=== PATIENT | female | born 1960 | race Caucasian/White ===

== ENCOUNTER 2023-04-17 16:39 | Inpatient (IN) ==
[2023-04-17] MEDS ORDERED: morphine 4 MG/ML VIAL IV ONE (17:00)
[2023-04-17] MEDS ORDERED: 0.9 % SODIUM CHLORIDE 1,000 ML IV ONE (17:01)
[2023-04-17] MEDS ORDERED: HYDROmorphone 1 MG/ML SYRINGE IV ONE ×2 (18:17→19:36)
[2023-04-17] MEDS ORDERED: PIPERACILLIN SODIUM/TAZOBACTAM 3.375 GM in DEXTROSE 5% IN WATER 50 ML IV ONE (19:02)
[2023-04-17] MEDS ORDERED: PANTOPRAZOLE 40 MG VIAL IV ONE (20:06)
[2023-04-17] MEDS: PIPERACILLIN SODIUM/TAZOBACTAM 3.375 GM in DEXTROSE 5% IN WATER 50 ML IV SCH (20:19)
[2023-04-17] MEDS: DEXTROSE 5%-LR 1,000 ML IV SCH ×2 (20:31→21:52)
[2023-04-17] MEDS: HYDROmorphone 0.5 MG/0.5 ML SYRINGE IV PRN (21:15)
[2023-04-17] MEDS: ACETAMINOPHEN 1,000 MG/100 ML BAG IV SCH (21:52)
[2023-04-18] MEDS: HYDROmorphone 0.5 MG/0.5 ML SYRINGE IV PRN ×11 (00:42→23:07)
[2023-04-18] MEDS: PIPERACILLIN SODIUM/TAZOBACTAM 3.375 GM in DEXTROSE 5% IN WATER 50 ML IV SCH ×2 (03:07→10:27)
[2023-04-18] MEDS: ACETAMINOPHEN 1,000 MG/100 ML BAG IV SCH (05:01)
[2023-04-18 06:58] LABS: Hematocrit 35.2 % (34.1-44.9); Hemoglobin 11.1 g/dL (11.2-15.7); Mean Cell Volume 95.7 fL (80.0-100.0); Mean Corpuscular HGB Conc 31.5 g/dL (31.0-36.0); Platelet Count 419 K/mcL (140-440); RBC 3.68 M/mcL (3.59-5.38); Red Cell Distribution Width 12.7 % (11.5-14.5); WBC 9.8 K/mcL (4.5-11.0)
[2023-04-18] MEDS: DEXTROSE 5%-LR 1,000 ML IV SCH ×4 (07:07→20:16)
[2023-04-18 07:51] LABS: ALT/SGPT < 5 U/L (<40); AST/SGOT 12 U/L (<32); Albumin 3.2 gm/dL (3.2-5.2); Alkaline Phosphatase 89 U/L (39-117); Bilirubin,Total 0.2 mg/dL (0.1-1.0); Blood Urea Nitrogen 6 mg/dL (6-20); Calcium 8.6 mg/dL (8.6-10.4); Carbon Dioxide 25 mmol/L (22-30); Chloride 100 mmol/L (96-108); Globulin 3.2 gm/dL (2.2-3.7); Glomerular Filtration Rate 99; Glucose 85 mg/dL (70-105)
[2023-04-18] MEDS ORDERED: PIPERACILLIN SODIUM/TAZOBACTAM 3.375 GM in DEXTROSE 5% IN WATER 50 ML IV ONE (10:30)
[2023-04-18] MEDS ORDERED: ACETAMINOPHEN 1,000 MG/100 ML BAG IV PRN (10:47)
[2023-04-18] MEDS: oxyCODONE IR 5 MG TABLET PO PRN ×4 (11:02→23:56)
[2023-04-18] MEDS: PIPERACILLIN SODIUM/TAZOBACTAM 3.375 GM in DEXTROSE 5% IN WATER 100 ML IV SCH (18:01)
[2023-04-19] MEDS: HYDROmorphone 0.5 MG/0.5 ML SYRINGE IV PRN ×11 (02:01→20:41)
[2023-04-19] MEDS: PIPERACILLIN SODIUM/TAZOBACTAM 3.375 GM in DEXTROSE 5% IN WATER 100 ML IV SCH ×4 (02:09→22:54)
[2023-04-19 03:58] LABS: Appearance,Urine CLEAR (Clear); Bilirubin,Urine Negative (Negative); Color,Urine YELLOW; Culture Indicated,Urine No; Glucose,Urine (UA) Negative (Negative); Ketones,Urine Negative (Negative); Leukocyte Esterase,Urine Negative /uL (Negative); Mucus,Urine FEW /hpf; Nitrate,Urine Negative (Negative); Protein,Urine Negative (Negative); Specific Gravity,Urine 1.008 (1.000-1.035); Urine RBC 2 /hpf (0-3); Urine Squamous Epithelial Cell 3 /hpf (0-4); Urine WBC < 1 /hpf (0-4)
[2023-04-19] MEDS ORDERED: INDOCYANINE GREEN 25 MG VIAL IV ONE (05:00)
[2023-04-19] MEDS ORDERED: KETAMINE 50 MG/ML Syringe IV ONE (07:02)
[2023-04-19] MEDS ORDERED: fentaNYL 100 MCG/2 ML VIAL IV ONE ×3 (07:03→10:38)
[2023-04-19] MEDS ORDERED: ROCURONIUM 10 MG/ML ML IV ONE ×2 (07:04→09:03)
[2023-04-19] MEDS ORDERED: LIDOCAINE 2% PF 5 ML VIAL ONE (07:04)
[2023-04-19] MEDS ORDERED: DEXAMETHASONE 10 MG/ML VIAL ONE (07:04)
[2023-04-19] MEDS ORDERED: SUGAMMADEX SODIUM 200 MG/2 ML VIAL IV ONE (07:04)
[2023-04-19] MEDS ORDERED: ONDANSETRON 4 MG/2 ML VIAL ONE (07:04)
[2023-04-19] MEDS ORDERED: PROPOFOL 200 MG/20 ML VIAL IV ONE (07:05)
[2023-04-19] MEDS ORDERED: MAGNESIUM SULFATE 2 GM/50 ML BAG IV ONE (07:06)
[2023-04-19] MEDS ORDERED: IPRATROPIUM/ALBUTEROL 3 ML AMPUL.NEB NEB PRN ×2 (07:30→10:21)
[2023-04-19] MEDS ORDERED: SCOPOLAMINE 1 PATCH PATCH TOPICAL PRN (07:30)
[2023-04-19 07:34] LABS: ALT/SGPT 5 U/L (<40); AST/SGOT 9 U/L (<32); Albumin 3.4 gm/dL (3.2-5.2); Alkaline Phosphatase 96 U/L (39-117); Bilirubin,Total 0.3 mg/dL (0.1-1.0); Blood Urea Nitrogen 3 mg/dL (6-20); Calcium 9.3 mg/dL (8.6-10.4); Carbon Dioxide 24 mmol/L (22-30); Chloride 101 mmol/L (96-108); Globulin 3.4 gm/dL (2.2-3.7); Glomerular Filtration Rate 99; Glucose 99 mg/dL (70-105)
[2023-04-19 07:54] LABS: Hematocrit 35.8 % (34.1-44.9); Hemoglobin 11.4 g/dL (11.2-15.7); Mean Cell Volume 95.7 fL (80.0-100.0); Mean Corpuscular HGB Conc 31.8 g/dL (31.0-36.0); Mean Platelet Volume 9.6 fL (8.8-12.5); Platelet Count 408 K/mcL (140-440); RBC 3.74 M/mcL (3.59-5.38); Red Cell Distribution Width 12.7 % (11.5-14.5); WBC 9.2 K/mcL (4.5-11.0)
[2023-04-19] MEDS ORDERED: HYDROmorphone 1 MG/ML SYRINGE ONE (08:17)
[2023-04-19] MEDS ORDERED: TRANEXAMIC ACID 1,000 MG/10 ML VIAL ONE (08:21)
[2023-04-19] MEDS ORDERED: FLUZONE QUAD QS2023-24/PF 60 MCG/0.5 ML SYRINGE IM ONE (10:00)
[2023-04-19] MEDS ORDERED: ONDANSETRON 4 MG/2 ML VIAL IV PRN ×3 (10:21→18:38)
[2023-04-19] MEDS ORDERED: diphenhydrAMINE 50 MG/ML VIAL IV PRN (10:21)
[2023-04-19] MEDS ORDERED: LACTATED RINGERS 250 ML IV PRN (10:21)
[2023-04-19] MEDS ORDERED: NALOXONE HCL 0.4 MG/ML VIAL IV PRN (10:21)
[2023-04-19] MEDS ORDERED: METHOCARBAMOL 1,000 MG/10 ML VIAL IV PRN (10:21)
[2023-04-19] MEDS ORDERED: PROMETHAZINE 25 MG/ML VIAL IV PRN (10:21)
[2023-04-19] MEDS ORDERED: MEPERIDINE 25 MG/ML VIAL IV PRN (10:21)
[2023-04-19] MEDS ORDERED: LACTATED RINGERS 1,000 ML IV SCH (10:30)
[2023-04-19] MEDS: fentaNYL 100 MCG/2 ML VIAL IV PRN ×4 (10:59→11:22)
[2023-04-19] MEDS ORDERED: BUPIVACAINE W/EPI 0.25% 50 ML VIAL IJ ONE (11:18)
[2023-04-19] MEDS: DEXTROSE 5%-LR 1,000 ML IV SCH ×2 (14:22→20:02)
[2023-04-19] MEDS: KETOROLAC 30 MG/ML VIAL IV SCH ×2 (20:27→23:50)
[2023-04-19] MEDS: oxyCODONE IR 5 MG TABLET PO PRN (20:28)
[2023-04-20] MEDS: oxyCODONE IR 5 MG TABLET PO PRN ×6 (00:23→22:12)
[2023-04-20] MEDS: KETOROLAC 30 MG/ML VIAL IV SCH ×3 (05:09→22:12)
[2023-04-20] MEDS: PIPERACILLIN SODIUM/TAZOBACTAM 3.375 GM in DEXTROSE 5% IN WATER 100 ML IV SCH (05:10)
[2023-04-20] MEDS: HYDROmorphone 0.5 MG/0.5 ML SYRINGE IV PRN ×5 (05:14→20:00)
[2023-04-20 06:43] LABS: Hematocrit 31.5 % (34.1-44.9); Hemoglobin 10.3 g/dL (11.2-15.7); Mean Corpuscular HGB Conc 32.7 g/dL (31.0-36.0); Mean Platelet Volume 9.7 fL (8.8-12.5); Platelet Count 379 K/mcL (140-440); RBC 3.35 M/mcL (3.59-5.38); Red Cell Distribution Width 12.5 % (11.5-14.5); WBC 15.9 K/mcL (4.5-11.0)
[2023-04-20 07:07] LABS: ALT/SGPT < 5 U/L (<40); AST/SGOT 8 U/L (<32); Albumin/Globulin Ratio 0.9 (1.0-2.3); Alkaline Phosphatase 88 U/L (39-117); Bilirubin,Total 0.2 mg/dL (0.1-1.0); Blood Urea Nitrogen 4 mg/dL (6-20); Calcium 8.7 mg/dL (8.6-10.4); Carbon Dioxide 24 mmol/L (22-30); Chloride 100 mmol/L (96-108); Globulin 3.4 gm/dL (2.2-3.7); Glomerular Filtration Rate 94; Glucose 131 mg/dL (70-105)
[2023-04-20] MEDS: DEXTROSE 5%-LR 1,000 ML IV SCH ×2 (10:56→17:47)
[2023-04-20] MEDS: PIPERACILLIN SODIUM/TAZOBACTAM 3.375 GM in 0.9 % SODIUM CHLORIDE 100 ML IV SCH ×2 (14:08→22:12)
[2023-04-21 00:43] VITALS: O2SAT 100
[2023-04-21] MEDS: HYDROmorphone 0.5 MG/0.5 ML SYRINGE IV PRN ×3 (01:01→07:15)
[2023-04-21] MEDS: DEXTROSE 5%-LR 1,000 ML IV SCH (01:55)
[2023-04-21] MEDS: oxyCODONE IR 5 MG TABLET PO PRN ×2 (02:44→07:15)
[2023-04-21 05:00] VITALS: TEMP 98.6
[2023-04-21] MEDS: KETOROLAC 30 MG/ML VIAL IV SCH (05:34)
[2023-04-21] MEDS: PIPERACILLIN SODIUM/TAZOBACTAM 3.375 GM in 0.9 % SODIUM CHLORIDE 100 ML IV SCH (05:35)
[2023-04-21 06:42] LABS: Hematocrit 31.1 % (34.1-44.9); Hemoglobin 9.9 g/dL (11.2-15.7); Mean Cell Volume 96.9 fL (80.0-100.0); Mean Corpuscular HGB Conc 31.8 g/dL (31.0-36.0); Mean Platelet Volume 9.6 fL (8.8-12.5); Platelet Count 355 K/mcL (140-440); RBC 3.21 M/mcL (3.59-5.38); WBC 12.6 K/mcL (4.5-11.0)
[2023-04-21 07:15] LABS: ALT/SGPT < 5 U/L (<40); AST/SGOT 9 U/L (<32); Albumin/Globulin Ratio 0.9 (1.0-2.3); Alkaline Phosphatase 81 U/L (39-117); Bilirubin,Total 0.3 mg/dL (0.1-1.0); Blood Urea Nitrogen 6 mg/dL (6-20); Calcium 8.5 mg/dL (8.6-10.4); Carbon Dioxide 25 mmol/L (22-30); Chloride 103 mmol/L (96-108); Globulin 3.2 gm/dL (2.2-3.7); Glomerular Filtration Rate 80; Glucose 96 mg/dL (70-105)
[2023-04-21] MEDS ORDERED: PIPERACILLIN SODIUM/TAZOBACTAM 3.375 GM in DEXTROSE 5% IN WATER 100 ML IV SCH (14:00)
== END 2023-04-21 08:20 | disposition short-term general hospital (02) | DRG 419 ==
LOC: ED 16:39 → MEDSUR 21:46
PROVIDERS: ADMIT Surgery Surgical Critical Care; ATTEND Surgery Surgical Critical Care